=== PATIENT | female | born 2000 | race African-American/Black ===

== ENCOUNTER 2020-12-10 21:50 | Emergency (ER) | payer MEDICAID ==
--- NOTE | 2020-12-10 22:16 | EDM.PDOC ---
ED HPI GENERAL MEDICAL PROBLEM - General Chief Complaint: Diabetic Complaint Stated Complaint: GESTATIONAL DIABETES Time Seen by Provider: 12/10/20 22:05 Source of Information: Reports: Patient History Limitations: Reports: No Limitations - History of Present Illness INITIAL COMMENTS - FREE TEXT/NARRATIVE: 33 weeks , recent diagnosis of gestational diabetes - on diet plan - reports her BS lately has been rising and tonight was up to 235 after having pasta for dinner. no n/v or abdominal pain.. decided to come to the ER for a checkup. family history of diabetes - mom is on insulin. has an appointment with her obgyn tomorrow. 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: Psychiatric History: Reports: Anxiety Endocrine/Metabolic History: Reports: Diabetes, Gestational Social & Family History - Tobacco Use Tobacco Use Status *Q: Never Tobacco User - Caffeine Use Caffeine Use: Reports: None - Recreational Drug Use Recreational Drug Use: No ED ROS GENERAL - Review of Systems Review Of Systems: See Below Constitutional: Reports: No Symptoms HEENT: Reports: No Symptoms Respiratory: Reports: No Symptoms Cardiovascular: Reports: No Symptoms GI/Abdominal: Reports: No Symptoms : Reports: No Symptoms Musculoskeletal: Reports: No Symptoms Skin: Reports: No Symptoms Neurological: Reports: No Symptoms ED EXAM GENERAL NO PERIP PULSE - Physical Exam Exam: See Below Exam Limited By: No Limitations General Appearance: Alert, WD/WN Eye Exam: Bilateral Eye: EOMI Respiratory/Chest: No Respiratory Distress Cardiovascular: Normal Peripheral Pulses GI/Abdominal: Normal Bowel Sounds, Soft Neurological: Alert, Oriented, No Motor/Sensory Deficits Course - Vital Signs Last Recorded V/S: Last Vital Signs Temp 36.9 C 12/10/20 21:53 Pulse 100 12/10/20 21:53 Resp 18 12/10/20 21:53 BP 128/83 12/10/20 21:53 Pulse Ox 99 12/10/20 21:53 - Orders/Labs/Meds Orders: Active Orders 24 hr Category Date Time Status Dextrose 50% in Water Med 12/10/20 22:30 Active 50 ml IVPUSH ASDIRECTED PRN Glucagon,Human Recombinant [GlucaGen] Med 12/10/20 22:30 Active 1 mg IM ASDIRECTED PRN Medication Orders Dextrose/Water (50% Dextrose In Water 50 Ml Syringe) 50 ml IVPUSH ASDIRECTED PRN PRN Reason: Hypoglycemia Glucagon (Glucagon,Human Recombinant 1 Mg Vial) 1 mg IM ASDIRECTED PRN PRN Reason: Hypoglycemia Labs: Laboratory Tests 12/10/20 Range/Units 22:00 POC Glucose 204 H (74-110) mg/dL Meds: Medications Generic Name Dose Route Start Last Admin Trade Name Freq PRN Reason Stop Dose Admin Dextrose/Water 50 ml 12/10/20 22:30 50% Dextrose In Water 50 Ml Syringe IVPUSH ASDIRECTED PRN Hypoglycemia Glucagon 1 mg 12/10/20 22:30 Glucagon,Human Recombinant 1 Mg Vial IM ASDIRECTED PRN Hypoglycemia Discontinued Medications Generic Name Dose Route Start Last Admin Trade Name Freq PRN Reason Stop Dose Admin Insulin Aspart 5 unit 12/10/20 22:30 12/10/20 22:33 Insulin Aspart 100 Units/Ml 3 Ml Pen SUBCUT 12/10/20 22:31 5 units ONETIME ONE Administration - Re-Assessments/Exams Free Text/Narrative Re-Assessment/Exam: 12/10/20 22:46 BS check in the 203 Novolog 5 units SQ - was given - BS down to 160 Departure - Departure Time of Disposition: 23:18 Disposition: Home, Self-Care 01 Condition: Good Clinical Impression: Gestational diabetes Qualifiers: Gestational diabetes mellitus control: insulin-controlled Trimester: third trimester Qualified Code(s): O24.414 - Gestational diabetes mellitus in , insulin controlled - Discharge Information *PRESCRIPTION DRUG MONITORING PROGRAM REVIEWED*: Not Applicable *COPY OF PRESCRIPTION DRUG MONITORING REPORT IN PATIENT RANDAL: Not Applicable Instructions: Gestational Diabetes Mellitus, Self Care, [id number], Insulin Treatment for Diabetes Mellitus Referrals: PCP,None [Primary Care Provider] - Forms: ED Department Discharge Sepsis Event Note (ED) - Evaluation Sepsis Screening Result: No Definite Risk - Focused Exam Vital Signs: Vital Signs Temp Pulse Resp BP Pulse Ox 12/10/20 21:53 36.9 C 100 18 128/83 99 - Problem List & Annotations (1) Gestational diabetes SNOMED Code(s): 22066713 Code(s): O24.419 - GESTATIONAL DIABETES MELLITUS IN , UNSP CONTROL Status: Acute Priority: Low Current Visit: Yes Qualifiers: Gestational diabetes mellitus control: insulin-controlled Trimester: third trimester Qualified Code(s): O24.414 - Gestational diabetes mellitus in , insulin controlled - Problem List Review Problem List Initiated/Reviewed/Updated: Yes - My Orders Last 24 Hours: My Active Orders 12/10/20 22:30 Dextrose 50% in Water 50 ml IVPUSH ASDIRECTED PRN Glucagon,Human Recombinant [GlucaGen] 1 mg IM ASDIRECTED PRN - Assessment/Plan Last 24 Hours: My Active Orders 12/10/20 22:30 Dextrose 50% in Water 50 ml IVPUSH ASDIRECTED PRN Glucagon,Human Recombinant [GlucaGen] 1 mg IM ASDIRECTED PRN Plan: - follow up with your PCP per your appointment - continue to check your blood sugar - return to the ER of blood sugar > 200 even with insulin
[2020-12-10] MEDS ORDERED: Insulin Aspart 100 Units/ML 3 ML Pen ONE (22:22)
[2020-12-10] MEDS ORDERED: Insulin Aspart 100 Units/ML 3 ML Pen SUBCUT ONE (22:30)
[2020-12-10] MEDS ORDERED: Glucagon,Human Recombinant 1 MG Vial IM PRN (22:30)
[2020-12-10] MEDS ORDERED: 50% Dextrose in Water 50 ML Syringe IVPUSH PRN (22:30)
== END 2020-12-10 23:32 | disposition home or self-care (01) ==
LOC: LB.ED 21:50
DX: O24.414 Gestational diabetes mellitus in pregnancy, insulin controlled (principal)
CPT/HCPCS: 82947; 99284; J1815-GY